=== PATIENT | female | born 1970 | race Caucasian/White ===

== ENCOUNTER 2016-04-12 13:35 | Emergency (ER) | payer BC ==
--- OUTSIDE RECORDS SUMMARY | 2016-04-12 14:34 | XMS REPORT | Continuity of Care Document ---
:1970 Author Organization [facility] ([facility]) Address [address] [place] [address] Phone [phone] Care Team Providers Name Role Phone Clarita Kim Primary Care Provider [phone] Source Comments This disclosure is being made pursuant to the Care Everywhere program, applicable federal and state laws, and may not contain all informaitonavailable regarding this patient.[facility] ([facility]) Active Allergies and Adverse Reactions No Known Allergies Current Medications Prescription Sig. Disp. Refills Start Date End Date Status fluticasone 50 Use 2 sprays in each 16 g 10 05/21/2014 Active mcg/Actuation nasal nostril daily. spray Indications: ALLERGIC RHINITIS Active Problems Problem Noted Date Myalgia 05/24/2011 Anxiety 04/19/2011 Asthma, history of 04/19/2011 Anemia, history of 04/19/2011 Heart murmur 04/19/2011 Migraines 04/19/2011 Seasonal allergic rhinitis 04/19/2011 Hemorrhoids 04/19/2011 Resolved Problems Problem Noted Date Resolved Date Depression 04/19/2011 04/19/2011 Social History Tobacco Use Types Packs/Day Years Used Date Never Smoker Smokeless Tobacco: Never Used Alcohol Use Drinks/Week oz/Week Comments No Last Filed Vital Signs Vital Sign Reading Time Taken Blood Pressure 114/69 05/05/2013 9:46 AM CDT Pulse 71 05/05/2013 9:46 AM CDT Temperature 37.5 C (99.5 F) 05/21/2014 11:50 AM CDT Respiratory Rate - - Height 1.66 m (5' 5.35") 04/19/2011 1:32 PM COSMETOLOGY EDUCATOR Weight 66.4 kg (146 lb 6.2 oz) 05/05/2013 9:46 AM CDT Body Mass Index 24.1 05/05/2013 9:46 AM CDT Oxygen Saturation - - Plan of Care Health Maintenance Due Date Last Done Comments Hepatitis B Vaccine (1 of 3 - Primary Series) 1970 Tdap Vaccine 01/16/1983 Lipid Disorder Screening 01/16/1990 MMR Vaccine 01/16/1990 Td Vaccine 01/16/1990 Pneumococcal Vaccine (1 of 1 - PPSV23) 01/16/1991 Cervical Cancer Screening 01/16/2002 Mammogram 2012 Influenza Vaccine: Seasonal (#1) 09/26/2015 Results from Last 3 Months Not on file
--- OUTSIDE RECORDS SUMMARY | 2016-04-12 14:34 | XMS REPORT | Continuity of Care Document ---
:1970 Author Organization [employer] [facility] [place] [address] Care Team Providers Name Role Phone Roxana Wells Primary Care Provider [phone] Source Comments This disclosure is being made pursuant to the [employer] program and maynot contain all information available regarding this patient.[employer] Active Allergies and Adverse Reactions No Known Allergies Current Medications Be aware that medications may not be up to date as of this document. Alwaysverify current medications with the patient. Prescription Sig. Disp. Refills Start Date End Date Status sertraline (ZOLOFT) 50 MG Take 50 mg by 0 03/05/2014 Active tablet mouth daily. zolpidem (AMBIEN) 5 MG Take 1 tablet 30 tablet 5 10/14/2015 Active tablet by mouth nightly as needed for Sleep. hydroxychloroquine TAKE 1 TABLET 60 tablet 12 01/10/2016 Active (PLAQUENIL) 200 MG tablet BY MOUTH TWICE DAILY Active Problems Problem Noted Date Uncomplicated asthma 09/28/2015 Cough 05/17/2015 Upper airway cough syndrome 05/17/2015 Undifferentiated connective tissue disease (HCC) 12/08/2013 Malaise and fatigue 12/11/2012 Overview: Overview: JAUN DACOSTA MD Nonspecific immunological findings 04/29/2012 Overview: Overview: JAUN DACOSTA MD Rash and nonspecific skin eruption 04/29/2012 Overview: Overview: JAUN DACOSTA MD Tear film insufficiency 04/29/2012 Overview: Overview: JAUN DACOSTA MD Pain in joint 04/03/2010 Overview: Overview: ELIS VILLAGOMEZ MD Esophageal reflux 04/03/2010 Overview: Overview: LEIS VILLAGOMEZ MD Irritable colon 04/03/2010 Overview: Overview: ELIS VILLAGOMEZ MD Most Recent Encounters Date Type Specialty Providers Description 03/05/2016 Orders Only Rheumatology Jaun Dacosta MD Systemic lupus erythematosus ([facility]) 03/02/2016 Orders Only Rheumatology Jaun Dacosta MD Systemic lupus erythematosus ([facility]) 03/01/2016 Telephone Rheumatology Flor Martinez LPN Other 02/09/2016 Data Import Social History Tobacco Use Types Packs/Day Years Used Date Never Smoker Smokeless Tobacco: Never Used Alcohol Use Drinks/Week oz/Week Comments Yes Alcoholic Drinks/day: rarely Last Filed Vital Signs Vital Sign Reading Time Taken Blood Pressure 116/80 09/28/2015 3:57 PM CDT Pulse 75 09/28/2015 1:59 PM CDT Temperature 36.5 C (97.7 F) 09/28/2015 1:59 PM CDT Respiratory Rate 16 09/28/2015 1:59 PM CDT Height 1.651 m (5' 5") 09/28/2015 1:59 PM CDT Weight 62.596 kg (138 lb) 09/28/2015 3:57 PM CDT Body Mass Index 22.96 09/28/2015 3:57 PM CDT Oxygen Saturation 100% 09/28/2015 1:59 PM CDT Plan of Care Health Maintenance Due Date Last Done Comments Pneumococcal Medium Risk 19-64 yo (1 of 1 - PPSV23) 01/16/1991 Tetanus/Pertussis (1 - Tdap) 01/16/1991 Pap Smear 01/16/1993 Influenza Immunization (#1) 2015 Results from Last 3 Months Rheumatoid factor (03/02/2016)KATI WITH REFLEX TO LUPUS (03/02/2016)Cyclic Citrullinated Peptide Antibodies (03/02/2016)High sensitivity CRP (03/02/2016) Sedimentation rate (03/02/2016)
[2016-04-12 14:37] LABS: Hematocrit 38.6 % (37.0-47.0); Hemoglobin 13.1 gm/dL (12.5-16.0); Mean Cell Volume 90.4 fl (78-100); Mean Corpuscular Hemoglobin 30.7 pg (27-31); Mean Corpuscular Hgb Conc 33.9 g/dl (32-36); Mean Platelet Volume 10.4 fl (6.0-9.5); Neutrophil # 3.7 K/mm3 (1.3-6.0); Neutrophil % 55.3 % (42-75.0); Platelet Count 182 K/mm3 (150-450); Red Blood Count 4.27 M/mm3 (4.2-5.4); Red Cell Distribution Width 12.1 % (11.5-14.0); White Blood Count 6.6 K/mm3 (4.0-10.5)
[2016-04-12 14:57] LABS: ALT 16 U/L (19-67); AST 17 U/L (0-48); Albumin * 4.3 gm/dl (3.4-5.0); Alkaline Phosphatase * 39 U/L (50-170); Anion Gap 15.6 mmol/L (6.8-13.8); Bilirubin, Total 1.7 mg/dL (0.0-1.1); Blood Urea Nitrogen 8 mg/dL (3-23); Ca. Corrected For Albumin 8.4 mg/dL (8.4-10.2); Carbon Dioxide 25.7 mmol/L (24-32.6); Chloride 105 mmol/L (97-106); Glucose * 101 mg/dL (70-110); Potassium 3.3 mmol/L (3.4-4.6); Sodium 143 mmol/L (132-142); Total Protein 7.5 gm/dL (6.2-8.2); Troponin I Less than 0.017 ng/ml (0.00-0.10)
[2016-04-12 15:23] VITALS: BP 109/56
--- NOTE | 2016-04-12 15:29 | ERNOTE ---
Chest Pain/Cardiac HPI Date of Service: 04/12/16 Chief Complaint: Palpitations Time Seen by Provider: 04/12/16 13:58 Source: patient, RN notes reviewed Exam Limitations: no limitations Immunizations: IMMUNIZATION HX History of Influenza Vaccine Yes Hx Pneumococcal Vaccination No Allergies/Adverse Reactions: Allergies No Known Allergies Allergy (Verified 04/12/16 14:08) Home Medications: HOME MEDICATIONS Hydroxychloroquine Sulfate [Plaquenil] 200 mg PO BID 09/16/15 [Last Taken Unknown] Sertraline HCl [Zoloft] 50 mg PO DAILY 09/16/15 [Last Taken Unknown] Cefdinir [Omnicef] 300 mg PO BID 04/12/16 [Last Taken Unknown] Narrative: 46 y/o female ambulatory to the ED after an episode of palpitations. She saw her PCP yesterday and was started on cefdinir and a medrol dose pack for bronchitis. She has had numerous episodes of recurrent "bronchitis" over the past 2 years. She was thought to have interstitial lung disease and has been evaluated by pulmonology. She has taken these medications before without any problems. Her cough began about 3 days ago. She has not had fevers. She also reports pain in her right scapular region that worsens with the coughing. Timing: gone now Activities at Onset: none Associated Symptoms: Present: dizziness, cough, palpitations. Absent: headache , syncope, shortness of breath, diaphoresis, fever/chills, heartburn, nausea, vomiting, abdominal pain, swelling/lump in chest Prior Treatment: Reports: recently seen, treated by physician, currently on antibiotics Review of Systems - Review of Systems Constitutional: Absent: fever, chills, malaise EYE: Present: no symptoms reported ENT: Absent: ear pain, nose congestion, sore throat, throat swelling Respiratory: Present: cough. Absent: shortness of breath, wheezing Cardiology: Present: palpitations. Absent: chest pain, syncope, edema Gastrointestinal/Abdominal: Absent: nausea, vomiting, abdominal pain Genitourinary: Present: no symptoms reported Musculoskeletal: Present: back pain. Absent: neck pain Skin: Absent: rash, lesions, lumps, change in color Neurological: Present: dizziness/light-headedness. Absent: headache, weakness, numbness, tingling Endocrine: Present: no symptoms reported Hematologic/Lymphatic: Present: no symptoms reported Psych: Absent: anxiety, depressed - Patient's Past Medical History Patient History - Medical: No pertinent hx Patient History - Cardiac/Respiratory: Bronchitis, Pneumonia Patient History - Cancer: No Hx of Cancer Patient History - Surgical Procedures: Patient History - Other: None - Social History Living Situations: home Smoking Status: Never smoker Alcohol Use: occasionally Drug Use: none - Immunizations Hx Pneumococcal Vaccination: No History of Influenza Vaccine: Yes Physical Exam - Physical Exam General Appearance: Present: wd/wn, alert, anxious - appears anxious but denies feeling as such Eye Exam: Normal inspection: bilateral, PERRL: bilateral Ears, Nose, Throat: Present: normal ENT inspection, normal pharynx. Absent: nasal congestion, sinus pain/drainage, pharyngeal erythema, dry mucous membranes Neck: Present: normal inspection, nontender, supple. Absent: thyromegaly Respiratory: Present: normal breath sounds, chest nontender, lungs clear, accessory muscle use - shallow resps, mild tachypnea - reports does not want to take full breaths because it causes pain her her scapula Cardiovascular/Chest: Present: regular rate, rhythm, no murmur, normal peripheral pulses Back Exam: Present: normal range of motion, no CVA tenderness, no vertebral tenderness, other - tenderness in right scapular region Extremity Exam: Present: normal inspection, no edema Neurological Exam: Present: alert, oriented, normal mood/affect, no motor/ sensory deficits Skin Exam: Present: normal color, warm/dry ED Progress - Results and Orders Patient's Lab Results:: I have reviewed the patient's lab results. - Vital Signs Patient's Vital Signs:: I have reviewed the patient's vital signs. Vital Signs: Vital Signs 04/12/16 04/12/16 04/12/16 13:48 14:33 15:21 Pulse Rate 87 86 89 Respiratory 18 12 12 Rate Blood Pressure 118/55 118/55 109/56 O2 Sat by Pulse 100 96 99 Oximetry - EKG EKG: NSR EKG read: Reviewed by me - X-Ray X-Ray #1 X-Ray: chest Interpretation: Reviewed by me X-ray Comments: Technique: PA and lateral views. Comparison: 09/13/2015 outside study. Findings: Heart size and vascularity appear within normal limits. Lung meneses show no focal infiltrates or effusions. There is no pneumothorax. IMPRESSION: NO ACUTE CARDIOPULMONARY DISEASE IDENTIFIED. Electronically signed by Manuel Vieira M.D.. - Progress/Reassessment Chief Complaint: Palpitations Progress:: Improved Departure - Departure Clinical Impression: Intermittent palpitations Disposition: Home self-care Condition: Good Instructions: Palpitations, [id number] Additional Instructions: Stop prednisone and cefdinir for now Follow up with Dr. Wells Saturday if needed Return to ER if symptoms worsen Consider taking something for reflux Referrals: Roxana Wells, [Primary Care Provider] -
== END 2016-04-12 16:18 | disposition home or self-care (01) ==
LOC: ER 13:35
DX: R00.2 Palpitations (principal); J40 Bronchitis, not specified as acute or chronic